=== PATIENT | female | born 1970 | race Caucasian/White ===

== ENCOUNTER 2018-04-25 18:40 | Emergency (ER) | payer SELFPAY ==
[~2018-04-25] VITALS: Ht 154.9 cm; Wt 106.0 kg
[2018-04-25] MEDS ORDERED: ACETAMINOPHEN 325MG TABLET PO ONE (22:45)
[2018-04-25 23:16] VITALS: BP 130/71
== END 2018-04-25 23:19 | disposition home or self-care (01) ==
LOC: ER 18:40
DX: S80.01XA Contusion of right knee, initial encounter (principal); I10 Essential (primary) hypertension; E11.9 Type 2 diabetes mellitus without complications; Z90.49 Acquired absence of other specified parts of digestive tract; Z98.890 Other specified postprocedural states; Z88.6 Allergy status to analgesic agent; W01.0XXA Fall on same level from slipping, tripping and stumbling without subsequent striking against object, initial encounter; Y93.89 Activity, other specified; Y92.89 Other specified places as the place of occurrence of the external cause; Y99.8 Other external cause status
CPT/HCPCS: 73560; 81025; 99284

== ENCOUNTER 2022-05-18 12:26 | Emergency (ER) | payer MEDICAID, OTHER ==
[~2022-05-18] VITALS: Ht 154.9 cm; Wt 109.0 kg
[2022-05-18] MEDS ORDERED: metformin (12:29)
[2022-05-18] MEDS ORDERED: ONDANSETRON HCL 4MG/2ML INJ IV STA (13:42)
[2022-05-18] MEDS ORDERED: SODIUM CHLORIDE 0.9% 1,000 ML IV ONE (13:45)
[2022-05-18 14:37] LABS: BASOPHILS % 0.7 % (0.0-2.0); EOSINOPHILS % 0.7 % (0.0-5.0); HEMATOCRIT. 40.6 % (36.0-48.0); HEMOGLOBIN. 13.5 g/dL (12.0-16.0); LYMPHOCYTES % 23.8 % (20.0-50.0); MEAN CORPUSCULAR HEMOGLOBIN 30.3 pg (28.0-32.0); MEAN PLATELET VOLUME 7.4 fl (7.4-10.4); NEUTROPHILS % 69.8 % (40.0-76.0); PLATELET 372 x1000/uL (130-400); RED BLOOD CELL COUNT 4.47 mill/uL (4.2-5.4); RED CELL DISTRIBUTION WIDTH 14.3 % (11.6-14.6)
[2022-05-18 14:57] LABS: CHLORIDE 107 mEq/L (98-107)
[2022-05-18] MEDS ORDERED: IBUPROFEN 400MG TABLET PO ONE (17:30)
[2022-05-18 17:40] VITALS: BP 127/57
[2022-05-18] MEDS ORDERED: ACETAMINOPHEN 325MG TABLET PO ONE (17:45)
== END 2022-05-18 18:06 | disposition home or self-care (01) ==
LOC: ER 13:06
DX: R51.9 Headache, unspecified (principal); E86.0 Dehydration; E78.00 Pure hypercholesterolemia, unspecified; I10 Essential (primary) hypertension; E11.9 Type 2 diabetes mellitus without complications; Z88.6 Allergy status to analgesic agent; Z98.890 Other specified postprocedural states; Z90.49 Acquired absence of other specified parts of digestive tract
CPT/HCPCS: 36415; 70450; 80053; 83690; 84484; 85025; 96360; 99284; J7030